=== PATIENT | male | born 1970 | race Caucasian/White ===

== ENCOUNTER 2018-03-10 06:13 | Day surgery (SDC) | payer OTHER ==
[2018-03-10] MEDS ORDERED: PROPOFOL 200 MG INJ (07:00)
[2018-03-10] MEDS ORDERED: PROPOFOL 60 ML (07:57)
[2018-03-10] MEDS ORDERED: LIDOCAINE 2% (SDV) 5 ML INJ (07:57)
== END 2018-03-10 15:30 | disposition home or self-care (01) ==
LOC: GIL 06:13
DX: Z12.11 Encounter for screening for malignant neoplasm of colon (principal); K57.90 Diverticulosis of intestine, part unspecified, without perforation or abscess without bleeding; D12.6 Benign neoplasm of colon, unspecified; K64.8 Other hemorrhoids
CPT/HCPCS: 45380; 88305